=== PATIENT | male | born 1985 | race African-American/Black ===

== ENCOUNTER 2021-01-25 11:42 | Emergency (ER) | payer SELFPAY ==
[~2021-01-25] VITALS: Ht 180.3 cm; Wt 95.4 kg
[2021-01-25 12:10] VITALS: BP 139/79
[2021-01-25] MEDS ORDERED: NAPROXEN 500 MG TABLET PO STA (12:44)
[2021-01-25] MEDS ORDERED: DIPH,PERTUSS(ACELL),TET VAC/PF 0.5 ML SYRINGE. VAX IM ONE (12:45)
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
[2021-01-25] MEDS ORDERED: NAPR-683 PO (14:06)
[2021-01-25] MEDS ORDERED: CYCL10TA2 PO (14:06)
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
== END 2021-01-25 14:21 | disposition home or self-care (01) ==
LOC: ER 11:42
DX: S50.312A Abrasion of left elbow, initial encounter (principal); M54.41 Lumbago with sciatica, right side; M54.42 Lumbago with sciatica, left side; M25.571 Pain in right ankle and joints of right foot; F17.200 Nicotine dependence, unspecified, uncomplicated; V43.53XA Car driver injured in collision with pick-up truck in traffic accident, initial encounter; Y93.89 Activity, other specified; Y92.488 Other paved roadways as the place of occurrence of the external cause; Y99.8 Other external cause status
CPT/HCPCS: 72100; 73080; 73590; 73610; 90471; 90715; 99284; A4565